=== PATIENT | female | born 1950 | race Two or more races ===

== ENCOUNTER 2021-12-15 17:21 | Emergency (ER) | payer MEDICAID ==
[~2021-12-15] VITALS: Ht 167.6 cm; Wt 59.9 kg
--- NOTE | 2021-12-15 17:35 | NUR ---
TO ER BED 4. WALK IN FROM HOME C/O HEART DISCOMFORT/PRESSURE , PALPITIONS FOR THE PAST 48 HRS. BREATHING IS EVEN AND UNLABORED. PT CHANGED INTO GOWN AND CONNECTED TO MONITOR.
--- NOTE | 2021-12-15 17:46 | NUR ---
ROLANDO PADILLA AT BEDSIDE FOR EKG
--- NOTE | 2021-12-15 18:07 | NUR ---
XRAY AT BEDSIDE
--- NOTE | 2021-12-15 18:39 | NUR ---
IV LINE ESTABLISHED LAC 20G
[2021-12-15 18:45] LABS: CALCIUM, SERUM 9.3 mg/dL (8.5-10.1); CARBON DIOXIDE 26 mmol/L (21-32); CHLORIDE 109 mmol/L (98-107); CREATININE 0.6 mg/dL (0.6-1.3); GLUCOSE 97 mg/dL (74-106); POTASSIUM 3.7 mmol/L (3.5-5.1); SODIUM SERUM 143 mmol/L (136-145); UREA NITROGEN, BLOOD 16 mg/dL (7-18)
[2021-12-15 19:02] LABS: THYROID STIMULATING HORMONE 2.283 uIU/mL (0.358-3.74)
[2021-12-15 19:24] LABS: MAGNESIUM 2.3 mg/dL (1.8-2.4)
[2021-12-15 19:52] LABS: BASOPHILS % (AUTO) 0.6 % (0.0-2.0); EOSINOPHILS % (AUTO) 2.9 % (0.0-6.0); HEMATOCRIT 37 % (33-45); HEMOGLOBIN 12.3 g/dL (11.5-14.8); LYMPHOCYTES # (AUTO) 1.8 K/uL (0.8-4.8); LYMPHOCYTES % (AUTO) 41.5 % (20.0-44.0); MEAN CORPUSCULAR HGB CONC 34 g/dl (31.0-36.0); MEAN CORPUSCULAR VOLUME 88 fL (82-100); MONOCYTES # (AUTO) 0.4 K/uL (0.1-1.30); MONOCYTES % (AUTO) 9.5 % (2.0-12.0); NEUTROPHILS # (AUTO) 1.9 K/uL (1.8-8.9); NEUTROPHILS % (AUTO) 45.5 % (43.0-81.0); PLATELET COUNT (AUTO) 187 K/uL (150-450); RED BLOOD CELL COUNT(AUTO) 4.17 MIL/uL (4.0-5.2); WHITE BLOOD COUNT (AUTO) 4.3 K/uL (4.3-11.0)
[2021-12-15 22:00] VITALS: BP 130/66
--- NOTE | 2021-12-15 22:12 | NUR ---
PATIENT GIVEN DISCHARGE INSTRUCTIONS, PT LEFT AMBULATING IN STABLE CONDITION.
== END 2021-12-15 22:12 | disposition home or self-care (01) ==
LOC: ER 17:28
DX: R00.2 Palpitations (principal); I25.10 Atherosclerotic heart disease of native coronary artery without angina pectoris; Z95.5 Presence of coronary angioplasty implant and graft; E78.5 Hyperlipidemia, unspecified; I11.9 Hypertensive heart disease without heart failure
CPT/HCPCS: 36415; 71045-TC; 80048-TC; 83735-TC; 83880; 84443-TC; 84484-TC; 85025-TC